=== PATIENT | male | born 1960 | race African-American/Black ===

== ENCOUNTER 2016-12-09 02:53 | Emergency (ER) | payer OTHER ==
[~2016-12-09] VITALS: Ht 175.3 cm; Wt 86.2 kg
== END 2016-12-09 04:40 | disposition home or self-care (01) ==
LOC: CED 02:53
DX: T78.3XXA Angioneurotic edema, initial encounter (principal); I10 Essential (primary) hypertension; Z88.8 Allergy status to other drugs, medicaments and biological substances
CPT/HCPCS: 96374; 96375; 99284; J1200; J2930